=== PATIENT | male | born 1965 | race Caucasian/White ===

== ENCOUNTER 2016-09-23 05:36 | Day surgery (SDC) | payer BC ==
--- NOTE | 2016-09-21 18:01 | GHP ---
[f rep st] HISTORY AND PHYSICAL This is for upcoming surgery date of September 23, 2016. HISTORY OF PRESENT ILLNESS: The patient is a 51-year-old male who comes to our office for the first time complaining of history of severe left inguinal pain. He did not palpate a mass. He has no pain presently. He had a negative ultrasound. He has no history of hip problems. He has never had surg chase in this area of his body. REVIEW OF SYSTEMS: He had a negative 10-point review of systems. PAST MEDICAL HISTORY: None. MEDICATIONS: None. ALLERGIES: None. PAST SURGICAL HISTORY: Hand surgery (fusion). PHYSICAL EXAM: GENERAL: The patient is a pleasant male in no apparent distress. HEAD AND NECK: Nor mocephalic, atraumatic. CHEST: CTA bilaterally. HEART: Regular rhythm and rate. ABDOMEN: Small umbilical hernia bilaterally, left greater than right masses consistent with hernia. EXTREMITIES: N o lower extremity edema. IMPRESSION: A 51-year-old male with bilateral inguinal hernias and a possible small umbilical hernia . RECOMMENDATION: Bilateral inguinal hernia repair was discussed with the patient in detail including risks of recurrence, nerve injury, scrotal swelling, seroma development, hematoma development. The p atient elects to proceed with scheduling surgery for September 23, 2015. /[id number]/MODL
[2016-09-23] MEDS ORDERED: LIDOCAINE 1% 5 ML SDV ONE (06:14)
[2016-09-23] MEDS ORDERED: ceFAZolin 2 GM/DEXTROSE 100 ML IV ONE (06:30)
[2016-09-23] MEDS ORDERED: BUPIVACAINE 0.5% 30 ML SDV ONE (07:03)
[2016-09-23] MEDS ORDERED: MIDAZOLAM 2 MG/2 ML VIAL ONE (07:07)
[2016-09-23] MEDS ORDERED: LIDOCAINE 2% 100 MG/5 ML SYR IVP ONE (07:12)
[2016-09-23] MEDS ORDERED: SUGAMMADEX SODIUM 200 MG/2 ML VIAL IVP ONE (07:12)
[2016-09-23] MEDS ORDERED: ONDANSETRON 4 MG/2 ML VIAL ONE ×2 (07:12→08:38)
[2016-09-23] MEDS ORDERED: DEXAMETHASONE 4 MG/ML VIAL ONE (07:12)
[2016-09-23] MEDS ORDERED: ROCURONIUM 50 MG/5 ML VIAL ONE (07:12)
[2016-09-23] MEDS ORDERED: fentaNYL 250 MCG/5 ML INJ ONE (07:12)
[2016-09-23] MEDS ORDERED: PROPOFOL 200 MG/20 ML VIAL ONE (07:12)
[2016-09-23] MEDS ORDERED: KETOROLAC 30 MG/1 ML SDV ONE (08:13)
[2016-09-23] MEDS ORDERED: fentaNYL 100 MCG/2 ML INJ ONE (08:31)
[2016-09-23] MEDS ORDERED: PROMETHAZINE HCL 25 MG/ML VIAL ONE (08:49)
[2016-09-23] MEDS ORDERED: HYDROmorphONE/DILAUDID 1 MG/ML SYR ONE (08:57)
--- NOTE | 2016-09-23 14:47 | GOP ---
[f rep st] OPERATIVE REPORT DATE OF OPERATION: SURGEON: Wilbur Jarvis MD [employer] GRADER: MEG Amaya ANESTHESIOLOGIST: Dr. Loving PREOPERATIVE DIAGNOSIS: Bilateral inguinal hernias and umbilical hernia. POSTOPERATIVE DIAGNOSIS: Bilateral inguinal hernias and umbilical hernia. PROCEDURE PERFORMED: Laparoscopic bilateral inguinal hernias and open umbilical hernia repair. FINDINGS: The patient was found to have bilateral moderate direct defects, there were no indirect sa cs, and a 1.5 to 2 cm umbilical defect. ESTIMATED BLOOD LOSS: Less than 5 cc. DESCRIPTION OF PROCEDURE: The patient was taken to the operating room where he received satisfactory general endotracheal anesthesia by Dr. Loving. He was placed in supine position, prepped and drap ed in usual sterile fashion. An infraumbilical incision was made and carried down to the rectus liang th. The umbilical hernia sac was dissected free from surrounding skin and subcutaneous tissue to the defect. The sac was opened and contents reduced. The fascia was closed with interrupted 0 Surgilon [id number] sutures. The wound was infiltrated with 0.5% Marcaine. A second rectus sheath inci lazaro made further distally. A subfascial tunnel was developed in the preperitoneal space. It was di ssected free with a balloon dissector which was replaced with a CO2 insufflation trocar. Bin liga ment was exposed bilaterally. The cords were mobilized bilaterally. The peritoneum was dissected of f the cord structures. There were no significant indirect sacs. Bilateral direct weaknesses were pr esent. Bilateral Covidien polyester mesh patches were placed over the inguinal floor, anchored in pl tabitha with a ProTack securing it to Bin's ligament, to the lacunar ligament, to the anterior abdomin al wall, and lateral abdominal wall outside the internal ring. Hemostasis was assured. Trocars were removed under direct vision. Trocar sites were closed with 0 Vicryl for the fascia, 4-0 Monocryl moore bcuticular stitch for the skin and the umbilical site. The subcu was closed with 3-0 Vicryl and the skin with 4-0 Monocryl subcuticular stitch. All wounds were infiltrated with 0.5% Marcaine. Juan Davdi reis rated procedure well. COMPLICATIONS: None. /[id number]/MODL
--- NOTE | 2016-09-25 17:32 | GOP ---
[f rep st] OPERATIVE REPORT DATE OF OPERATION: 09/23/2016 SURGEON: Wilbur Jarvis MD PREOPERATIVE DIAGNOSIS: Bilateral inguinal hernias and small umbilical hernia. POSTOPERATIVE DIAGNOSIS: Bilateral inguinal hernias and small umbilical hernia. PROCEDURE PERFORMED: Lap bilateral inguinal hernia repairs and open umbilical hernia repair ASST: MEG Sutton FINDINGS: Patient was found to have bilateral direct inguinal defects. He also had a small 1.5 cm umbilical defect. DESCRIPTION OF PROCEDURE: Patient taken to the operating room, where he received satisfactory general endotracheal anesthesia by Dr. Loving. He was placed in the supine position, and prepped and draped in the usual sterile fashion. Infraumbilical incision was made. Dissection was carried down to the rectus sheath, which was incised. A subfascial tunnel was developed and the preperitoneal space was dissected free with a balloon dissector, which was replaced with CO2 insufflation trocar. Two other trocars were placed at a midline under direct vision. Bin's ligament was exposed bilaterally. The cords were mobilized bilaterally. Peritoneum was dissected off the cord structures. There were no indirect sacs. Direct defects were exposed. The contents were reduced. Bilateral Covidien mesh patches were placed over the inguinal floor. They were anchored in place with the Protac, securing them to Bin's ligament, to the lacunar ligament, to the anterior abdominal wall, and the lateral abdominal wall outside the internal ring. Hemostasis was assured. Trocars were removed under direct vision. Trocar sites were closed with 0 Vicryl for the fascia, 4-0 Vicryl subcuticular stitch for the skin. All layers were infiltrated with 0.5% Marcaine. Attention was turned to the umbilical defect, which was dissected free from the subcutaneous tissue and the skin of the umbilicus. The sac was opened. Its contents were reduced. The defect was closed with interrupted 0 Surgilon figure -of-eight sutures. The wound was infiltrated with 0.5% Marcaine. Subcu was closed with 3-0 Vicryl, the skin with Monocryl subcuticular stitch. There were no complications. He tolerated the procedure well, taken to recovery room in good condition. /[id number]/MODL MTDD
== END 2016-09-23 10:40 | disposition home or self-care (01) ==
LOC: FSGY 05:36
PROVIDERS: ATTEND Surgery
DX: K40.20 Bilateral inguinal hernia, without obstruction or gangrene, not specified as recurrent (principal); K42.9 Umbilical hernia without obstruction or gangrene
CPT/HCPCS: 49585; 49650; C1727; C1781; J0690; J1100; J1170; J1885; J2001; J2250; J2405; J2550; J2704; J3010